=== PATIENT | female | born 1955 | race Caucasian/White ===

== ENCOUNTER 2020-06-14 09:52 | Day surgery (SDC) | payer MEDICAID ==
[~2020-06-14] VITALS: Ht 157.5 cm; Wt 133.6 kg
[~2020-06-14 09:52] MED LIST: COUMADIN10 MG PO; EPITOL200 MG PO; HYDROCODONE-APA1 TAB PO; KLONOPIN1 MG PO; LOVENOX INJ100 MG/ML SC; NEURONTIN800 MG PO; OMEPRAZOLE20 M1 PO; SEROQUEL200 MG PO; THERMOTABS 1 GM1 GM PO; WELLBUTRIN XL150 M1 PO; ZESTRIL10 MG PO; ZOCOR40 MG PO
[2020-06-14] MEDS ORDERED: ELIQUIS5 MG PO (10:16)
[2020-06-14] MEDS ORDERED: GLUCOPHAGE500 MG PO (10:16)
[2020-06-14] MEDS ORDERED: LISINOPRIL-HCT1 EAC7 PO (10:17)
[2020-06-14 10:51] LABS: APTT 25.7 SECONDS (22.8-39.4); INR 0.98 (0.85-1.17)
[2020-06-14 10:54] LABS: HEMATOCRIT 44.3 % (36.0-48.0); HEMOGLOBIN 14.6 g/dL (12-16); MCH 30.5 pg (26.0-34.0); MCV 92.7 fL (80.0-100.0); MEAN PLATELET VOLUME 10.8 fL (7.4-10.4); RBC 4.78 10x6/uL (4.00-5.40); RDW 13.4 % (11.5-14.5); WBC 5.6 10x3/uL (4.8-10.8)
[2020-06-14 10:55] VITALS: BP 137/85; Ht 157.5 cm; Wt 133.6 kg
--- NOTE | 2020-06-14 12:50 | NUR ---
DR ALEMAN NOTIFIED AND REVIEWED PT'S BEHAVIOR AND ASSESSMENT. PT IS LOW RISK. RESOURCES GIVEN AND SHE VERBALIZES UNDERSTANDING.
--- NOTE | 2020-06-16 15:58 | OP ---
PATIENT NAME: FUNMI CELESTIN MEDICAL RECORD: [id number] :55 LOCATION:[facility] ADMISSION DATE: SURGEON: ANURADHA WINTERS DO DATE OF OPERATION: 06/14/2020 PROCEDURE: Colonoscopy with polypectomy. INDICATIONS FOR PROCEDURE: Positive stool guaiac, left lower quadrant abdominal pain, chronic constipation, history of colon polyps. SCOPE: Olympus video pediatric colonoscope. MEDICATIONS: Propofol 450 mg IV per anesthesia. WITHDRAWAL TIME: 11 minutes. ESTIMATED BLOOD LOSS: Minimal. COMPLICATIONS: None. FINDINGS: Informed consent was given. The patient was made comfortable with the above medication. After reaching an adequate level of sedation by slow IV push, the patient was placed on her left side. A digital rectal examination was performed and it was normal. The endoscope was advanced under direct visualization through the rectum to the cecum, confirmed by the presence of the appendiceal orifice and ileocecal valve. The endoscope was slowly withdrawn and mucosa was carefully examined. The prep quality was good. There were 2 polyps visualized on today's examination. The first was located in the ascending colon. It was a benign appearing sessile polyp, which measured approximately 2-3 mm in diameter. It was removed using a hot forceps. In the transverse colon, there was a benign appearing sessile polyp, which measured 2-3 mm in diameter. It was removed using a hot forceps. There were no diverticula specifically seen on today's examination. Retroflexion was performed in the rectum with visualization of grade I internal hemorrhoids without bleeding. The endoscope was withdrawn from the patient. The patient tolerated the procedure well and there were no complications. IMPRESSION: 1. Two benign appearing polyps as described above, removed using hot forceps. 2. Grade I internal hemorrhoids without bleeding. PLAN AND RECOMMENDATIONS: 1. Discharge home when recovery parameters are met. 2. Follow up biopsy specimen results. 3. High fiber diet. 4. Supplement diet with 1 tablespoon of Metamucil or similar fiber daily. 5. Continue current medications. 6. Follow up in GI clinic as needed. 7. Recall colonoscopy in 5 years. TRANSINT:[id number] Voice Confirmation ID: [id number] DOCUMENT ID: [id number] OPERATIVE REPORT [id number] FUNMI CELESTIN ANURADHA WINTERS DO at 1558 CC: [id number] DICTATION DATE: 06/14/20 1217 [employer]ATE: 06/14/20 1330 [facility] [place] 06/14/20 [facility] [address] [place] [address]
== END 2020-06-14 13:20 | disposition home or self-care (01) ==
LOC: D.OPS 09:52
PROVIDERS: Anesthesiology; ATTEND Internal Medicine Gastroenterology
DX: R19.5 Other fecal abnormalities (principal); R10.32 Left lower quadrant pain; K59.09 Other constipation; Z86.010 Personal history of colon polyps; K63.5 Polyp of colon

== ENCOUNTER 2021-05-09 14:36 | Emergency (ER) | payer MEDICAID, MEDICARE ==
[~2021-05-09] VITALS: Ht 157.5 cm; Wt 108.6 kg
[~2021-05-09 14:36] MED LIST changes: +ELIQUIS5 MG PO; +GLUCOPHAGE500 MG PO; +LISINOPRIL-HCT1 EAC7 PO
[2021-05-09 15:35] VITALS: Ht 157.5 cm; Wt 108.6 kg
[2021-05-10 00:13] VITALS: BP 152/82
== END 2021-05-09 21:45 | disposition home or self-care (01) ==
LOC: D.ER 14:36
DX: S06.0X0A Concussion without loss of consciousness, initial encounter (principal); W19.XXXA Unspecified fall, initial encounter; M47.892 Other spondylosis, cervical region; E04.1 Nontoxic single thyroid nodule; I10 Essential (primary) hypertension; K21.9 Gastro-esophageal reflux disease without esophagitis